=== PATIENT | male | born 1980 | race African-American/Black ===

== ENCOUNTER 2016-11-04 20:13 | Emergency (ER) | payer SELFPAY ==
[~2016-11-04] VITALS: Ht 172.7 cm; Wt 102.1 kg
[~2016-11-04 20:13] MED LIST: FEOSOL325 MG ORAL
[2016-11-04 20:46] VITALS: BP 147/97
[2016-11-04 22:17] VITALS: BP 142/95
[2016-11-04 22:21] LABS: BASOPHILS % (AUTO) 2.3 % (0.0-2.0); EOSINOPHILS % (AUTO) 1.4 % (0.0-3.0); LYMPHOCYTES % (AUTO) 20.8 % (20.0-45.0); MEAN CORPUSCULAR HEMOGLOBIN 19.5 PG (27.0-31.0); MEAN CORPUSCULAR HGB CONC 27.6 G/DL (32.0-36.0); MEAN CORPUSCULAR VOLUME 71 FL (80-99); MONOCYTES % (AUTO) 9.7 % (1.0-10.0); NEUTROPHILS % (AUTO) 65.9 % (45.0-75.0); PLATELET COUNT 530 K/UL (150-450); RED BLOOD COUNT 4.17 M/UL (4.70-6.10); RED CELL DISTRIBUTION WIDTH 19.5 % (11.6-14.8); WHITE BLOOD COUNT 9.6 K/UL (4.8-10.8)
[2016-11-04 22:29] LABS: ALANINE AMINOTRANSFERASE 47 U/L (3-41); ANION GAP 15 (5-15); ASPARTATE AMINO TRANSFERASE 32 U/L (5-40); CALCIUM 8.7 mg/dL (8.6-10.2); CARBON DIOXIDE 25 mEQ/L (20-30); CHLORIDE 100 mEQ/L (98-107); CREATININE 0.8 mg/dL (0.7-1.2); GLOMERULAR FILTRATION RATE > 60 mL/min (>60); HEMOLYSIS 3; LIPASE 91 U/L (< 60); SODIUM 140 mEQ/L (135-145); TOTAL PROTEIN 7.7 g/dL (6.6-8.7)
[2016-11-04 23:02] LABS: APPEARANCE,URINE CLEAR; KETONES,URINE NEGATIVE (NEGATIVE); LEUKOCYTE ESTERASE ,URINE NEGATIVE (NEGATIVE); NITRITE,URINE NEGATIVE (NEGATIVE); PH,URINE 7 (4.5-8.0); PROTEIN,URINE NEGATIVE (NEGATIVE); UROBILINOGEN,URINE 1 MG/DL (0.0-1.0)
--- NOTE | 2016-11-04 23:51 | Emergency Room Report ---
History of Present Illness General Chief Complaint: General Complaint Source: Patient Present Illness HPI Patient c/o urine tube came out. States unable to urinate. Also swelling in legs. He denies trauma or hematuria. He states he wants a procedure with x- ray to put the tube back in. Denies insertion of FB. No rectal pain. Moving bowels without problems. Some reported erectile dysfunction - not constant. Not state fullness of bladder at this time. No dysuria. Feels urine is going into his legs. Points to perineum as the place where the tube "came out". States "this happens just before someone dies - doesn't it?" Also complaining of swelling of ankles. This for several days. No calf pain. Denies CP, SOB, orthopnea, hemoptysis. Patient has been seen in past for psychosis. Denies SI or HI. Not taking meds and denies taking psych meds in the past. At time of prior admits, tox screen has been negative (05/2016 had + benzos). Had gastric bypass surgery as adolescent. Evaluated for anemia after admission for "OD" Epoq. Anemia at that time felt to be iron deficiency - heme neg stools. No recent melena, bruising. Allergies: Coded Allergies: No Known Allergies (Unverified , 06/02/16) Patient History Past Medical History: see triage record Past Surgical History: other - gastric bypass Social History: Denies: alcohol use, drug use, smoking Social History Narrative brought by father Reviewed Nursing Documentation: PMH: Agreed, PSxH: Agreed Nursing Documentation-PM Hx Cardiac Problems: No Hx Hypertension: No Hx Pacemaker: No Hx Asthma: No Hx COPD: No Hx Diabetes: No Hx Cancer: No Hx Gastrointestinal Problems: No Hx Dialysis: No History Of Psychiatric Problem: Yes Hx Neurological Problems: No Hx Cerebrovascular Accident: No Hx Seizures: No Review of Systems All Other Systems: negative except mentioned in HPI Physical Exam Vital Signs Date Time Temp Pulse Resp B/P Pulse Ox O2 Delivery O2 Flow Rate FiO2 11/04/16 20:27 99.1 97 16 147/97 100 Room Air Sp02 EP Interpretation: reviewed, normal General Appearance: well appearing, no apparent distress, GCS 15 Head: normocephalic Eyes: bilateral eye PERRL, bilateral eye normal inspection ENT: moist mucus membranes Neck: supple Respiratory: lungs clear, normal breath sounds Cardiovascular #1: regular rate, rhythm, edema - trace bilat LE Cardiovascular #2: 2+ radial (R) Gastrointestinal: normal inspection, normal bowel sounds, non tender, no mass, non-distended Genitourinary: no CVA tenderness, penis normal, scrotum normal, other - circumcised, perineum without swelling or tenderness Musculoskeletal: back normal, gait/station normal, normal range of motion, no calf tenderness Neurologic: alert, motor strength/tone normal, sensory intact, oriented - X2 Psychiatric: anxious - but flat, delusional Skin: warm/dry, other - minimal erythema LE Medical Decision Making Diagnostic Impression: Primary Impression: Dysuria Additional Impressions: Somatization disorder Suspect schizoaffective disorder ER Course Patient presents with symptoms of some change in urination. Ddx: UTI, prostatitis, somatization, perineal abscess, stone amongst others. Consideration of etiology of edema. Need to r/o renal failure, CHF, cellulitis. Exam against DVT and CHF. Evaluation with labs, xray. No treatment indicated at this time depending on findings of work up. Patient delusional but not paranoid or suicidal. Here with father. Poor understanding of normal physiology. Dad also with some poor understanding of process (states he has to go to work). Anemia actually better than prior testing. Xray with stool. Patient denies constipation. Patient requesting how to make genitals larger ("How much does that cost?" " Can I get another penis?"). No medical emergency. Not danger to self or others nor gravely disabled. Patient stable for outpatient observation and treatment. Laboratory Tests Test 11/04/16 21:59 11/04/16 22:50 White Blood Count 9.6 K/UL (4.8-10.8) Red Blood Count 4.17 M/UL (4.70-6.10) L Hemoglobin 8.1 G/DL (14.2-18.0) L Hematocrit 29.4 % (42.0-52.0) L Mean Corpuscular Volume 71 FL (80-99) L Mean Corpuscular Hemoglobin 19.5 PG (27.0-31.0) L Mean Corpuscular Hemoglobin Concent 27.6 G/DL (32.0-36.0) L Red Cell Distribution Width 19.5 % (11.6-14.8) H Platelet Count 530 K/UL (150-450) H Mean Platelet Volume 6.0 FL (6.5-10.1) L Neutrophils (%) (Auto) 65.9 % (45.0-75.0) Lymphocytes (%) (Auto) 20.8 % (20.0-45.0) Monocytes (%) (Auto) 9.7 % (1.0-10.0) Eosinophils (%) (Auto) 1.4 % (0.0-3.0) Basophils (%) (Auto) 2.3 % (0.0-2.0) H Sodium Level 140 mEQ/L (135-145) Potassium Level 4.0 mEQ/L (3.4-4.9) Chloride Level 100 mEQ/L (98-107) Carbon Dioxide Level 25 mEQ/L (20-30) Anion Gap 15 (5-15) Blood Urea Nitrogen 13 mg/dL (7-23) Creatinine 0.8 mg/dL (0.7-1.2) Estimate Glomerular Filtration Rate > 60 mL/min (>60) Glucose Level 100 mg/dL (74-106) Calcium Level 8.7 mg/dL (8.6-10.2) Total Bilirubin 0.3 mg/dL (0.0-1.2) Aspartate Amino Transferase (AST) 32 U/L (5-40) Alanine Aminotransferase (ALT) 47 U/L (3-41) H Alkaline Phosphatase 59 U/L (40-129) Total Protein 7.7 g/dL (6.6-8.7) Albumin 4.0 g/dL (3.5-5.2) Globulin 3.7 g/dL Albumin/Globulin Ratio 1.0 (1.0-2.7) Lipase 91 U/L (< 60) H Urine Color Pale yellow Urine Appearance Clear Urine pH 7 (4.5-8.0) Urine Specific [place] 1.010 (1.005-1.035) Urine Protein Negative (NEGATIVE) Urine Glucose (UA) Negative (NEGATIVE) Urine Ketones Negative (NEGATIVE) Urine Occult Blood Negative (NEGATIVE) Urine Nitrite Negative (NEGATIVE) Urine Bilirubin Negative (NEGATIVE) Urine Urobilinogen 1 MG/DL (0.0-1.0) H Urine Leukocyte Esterase Negative (NEGATIVE) Other X-Ray Diagnostic Results Other X-Ray Diagnostic Results : X-Ray Ordered: abdomen EP Interpretation: Yes Findings: other - NSBGP, inc stool, no calcifications Number of Views: 2 Last Vital Signs Date Time Temp Pulse Resp B/P Pulse Ox O2 Delivery O2 Flow Rate FiO2 11/05/16 04:15 98.7 72 18 135/85 99 Room Air Status: improved Disposition: HOME, SELF-CARE Condition: Improved Scripts Multivitamin With Minerals (MULTIVITAMINS WITH MINERALS*) 1 Each Tablet 1 TAB ORAL DAILY, #30 TAB 2 Refills Prov: Lasha Olivia M.D. 11/05/16 Referrals: NOT CHOSEN JUANITA/,REFERRING (PCP) Lasha Olivia M.D. Nov 04, 2016 23:51
[2016-11-05] MEDS ORDERED: MULTIVITAMINS1 EAC8 ORAL (00:20)
[2016-11-05 04:10] VITALS: BP 135/85
[2016-11-05 04:15] VITALS: BP 135/85
--- NOTE | 2016-11-05 12:12 | Diagnostic Imaging Report ---
Indication: Abdominal pain Comparison: None Single view of the abdomen obtained Findings: Bowel gas pattern is nonspecific. No mass, ectopic calcifications, or abnormal gas collections are identified. The bones are osteopenic. There are surgical clips in the epigastric region. Impression: No acute findings
== END 2016-11-05 04:15 | disposition home or self-care (01) ==
LOC: EMR 21:10
DX: R30.0 Dysuria (principal); F45.0 Somatization disorder; R22.43 Localized swelling, mass and lump, lower limb, bilateral
CPT/HCPCS: 36415; 74000; 80053; 81003; 83690; 85025; 99283